=== PATIENT | male | born 1945 | race Asian ===

== ENCOUNTER 2018-11-25 19:44 | Emergency (ER) | payer MEDICARE, MEDICAID ==
[~2018-11-25] VITALS: Ht 167.6 cm; Wt 72.1 kg
[2018-11-25] MEDS ORDERED: cloNIDine HCL 0.1 MG TAB PO ONE (21:45)
[2018-11-26 01:54] LABS: Basophils # (auto) 0.1 uL; Basophils % (auto) 0.7 % (0.0-2.0); Eosinophils # (auto) 0.2 uL; Hematocrit 39.6 % (41.0-53.0); Lymphocytes # (auto) 1.9 uL; Lymphocytes % (auto) 25.8 % (10.0-50.0); Mean Corpuscular Hgb Conc. 32.9 g/dL (32.0-36.0); Mean Corpuscular Volume 81.9 fL (80.0-100.0); Monocytes # (auto) 0.5 uL; Monocytes % (auto) 7.2 % (0.0-12.0); Neutrophils # (auto) 4.7 uL; Neutrophils % (auto) 63.3 % (37.0-80.0); Platelet Count (auto) 203 10^3/uL (140-450); Red Blood Cells 4.84 10^6/uL (4.5-5.90); Red Cell Distribution Width 14.5 % (11.8-14.3); White Blood Cell 7.4 10^3/uL (4.4-10.8)
[2018-11-26 02:19] LABS: Alanine Aminotransferase 21 U/L (16-61); Albumin 3.3 g/dL (3.4-5.0); Anion Gap 8 (5-15); Aspartate Aminotransferase 14 U/L (15-37); BUN/Creatinine Ratio 15.2; Blood Urea Nitrogen 17 mg/dL (7-18); Calcium 7.8 mg/dL (8.5-10.1); Carbon Dioxide 25 mmol/L (21-32); Chloride 109 mmol/L (98-107); GFR African American 83 mL/min; GFR Non-African American 68 mL/min; Glucose 95 mg/dL (74-106); Potassium 3.8 mmol/L (3.5-5.1); Sodium 142 mmol/L (136-145)
[2018-11-26 02:23] LABS: Alkaline Phosphatase 44 U/L (45-117); Bilirubin, Total 0.7 mg/dL (0.2-1.0)
[2018-11-26 09:13] VITALS: BP 139/89
[2018-11-26] MEDS ORDERED: ACETAMINOPHEN 325 MG TAB PO ONE (09:45)
== END 2018-11-26 08:47 | disposition home or self-care (01) ==
LOC: ER 19:44
DX: I10 Essential (primary) hypertension (principal)
CPT/HCPCS: 36415; 71045; 80053; 83880; 84484; 85025; 93005

== ENCOUNTER 2024-04-26 07:21 | Inpatient (IN) | payer MEDICARE, MEDICAID ==
[~2024-04-26] VITALS: Ht 170.2 cm; Wt 72.0 kg
--- NOTE | 2024-04-26 07:34 | ECG ---
[facility] Test Date: 2024-04-26 Test Time: 07:33:48 Pat Name: EDUARDO NARAYAN Department: ER Room: 0287T Gender: M Rd Lab Technician: YESSICA : 1945 Requested By: SHAHEEN DENNISON Order Number: [id number] Reading MD: Felipe Greenfield Measurements Intervals [place] Rate: 73 P: 80 VT: 205 QRS: 73 QRSD: 82 T: 81 QT: 440 QTc: 485 Interpretive Statements Sinus rhythm Borderline T wave abnormalities Borderline prolonged QT interval Electronically Signed On 04-28-2024 16:13:07 PST by Felipe Greenfield Please click the below link to view image of tracing.
[2024-04-26 08:06] LABS: Basophils # (auto) 0.1 10 ^3/uL (0-0.2); Basophils % (auto) 0.5 % (0.0-2.0); Eosinophils # (auto) 0 10 ^3/uL (0-0.8); Eosinophils % (auto) 0.2 % (0.0-7.0); Hematocrit 41.9 % (41.0-53.0); Hemoglobin 13.6 g/dL (13.5-17.5); Lymphocytes % (auto) 6.2 % (10.0-50.0); Mean Corpuscular Hgb Conc. 32.4 g/dL (32.0-36.0); Mean Corpuscular Volume 83.2 fL (80.0-100.0); Monocytes # (auto) 0.6 10 ^3/uL (0-1.3); Monocytes % (auto) 3.8 % (0.0-12.0); Neutrophils # (auto) 13.7 10 ^3/uL (1.6-8.6); Neutrophils % (auto) 89.3 % (37.0-80.0); Nucleated Red Blood Cells % 0.1 %; Platelet Count (auto) 246 10^3/uL (140-450); Red Blood Cells 5.04 10^6/uL (4.5-5.90); Red Cell Distribution Width 14.9 % (11.8-14.3); White Blood Cell 15.3 10^3/uL (4.4-10.8)
[2024-04-26] MEDS: ASPirin 81 mg TAB PO ONE (08:14)
--- NOTE | 2024-04-26 08:19 | ED.PDOC ---
History of Present Illness HPI Comments 79 y/o M, with a Hx of uncontrolled HTN and HLD, HTN, FL, and appendectomy, presents with brother for c/o chest, abdominal, and back pain, shortness of breath, generalized weakness, and HTN, today. Patient is a Croatian speaker and, per brother, who is translating on patient's behalf, endorses on onset of s ymptoms since 1800, last night. Patient states on pain being a 9/10, pressure- like, and having it before when he had an FL in the past. Patient denies having any shortness of breath, nausea, vomiting, fever, chills, or other associated symptoms or modifiers at this time. Chief Complaint: Chest Pain Time Seen by MD: 07:45 Primary Care Provider: UNKNOWN Reviewed Notes: Nurses Notes, Medications, Allergies Allergies: Coded Allergies: NO KNOWN ALLERGIES (Unverified , 11/25/18) Information Source: Patient, Relative (Sibling) Mode of Arrival: Ambulatory Severity: Moderate Timing: Days Duration: Since onset Prehospital treatment: None Past Medical History PAST MEDICAL HISTORY: DM, High Lipids, HTN, FL Surgical History: Appendectomy Family History Family History: Unknown Social History Smoker: Non-Smoker Alcohol: Denies ETOH Use Drugs: Denies Drug Use Lives In: Home Constitutional: denies: chills, diaphoresis, fatigue, fever, malaise, sweats, weakness, others EENTM: denies: blurred vision, double vision, ear bleeding, ear discharge, ear drainage, ear pain, ear ringing, eye pain, eye redness, hearing loss, mouth pain, mouth swelling, nasal discharge, nose bleeding, nose congestion, nose pain, photophobia, tearing, throat pain, throat swelling, voice changes, others Respiratory: reports: shortness of breath; denies: cough, hemoptysis, orthopnea, SOB at rest, SOB with excertion, stridor, wheezing, others Cardiovascular: reports: chest pain Gastrointestinal: reports: abdominal pain; denies: abdomen distended, blood streaked bowels, constipated, diarrhea, dysphagia, difficulty swallowing, hematemesis, melena, nausea, poor appetite, poor fluid intake, rectal bleeding, rectal pain, vomiting, others Genitourinary: denies: burning, dysuria, flank pain, frequency, hematuria, incontinence, penile discharge, penile sore, pain, testicle pain, testicle swelling, urgency, others Neurological: reports: weakness; denies: dizziness, fainting, headache, left sided numbness, left sided weakness, numbness, paresthesia, pre-existing deficit, right sided numbness, right sided weakness, seizure, speech problems, tingling, tremors, others Musculoskeletal: reports: back pain; denies: gout, joint pain, joint swelling, muscle pain, muscle stiffness, neck pain, others Integumetry: denies: bruises, change in color, change in hair/nails, dryness, l aceration, lesions, lumps, rash, wounds, others Allergic/Immunocompromised: denies: Difficulty Healing, Frequent Infections, Hives, Itching, others Hematologic/Lymphatic: reports: others (HTN); denies: anemia, blood clots, easy bleeding, easy bruising, swollen glands Endocrine: denies: excessive hunger, excessive sweating, excessive thirst, excessive urination, flushing, intolerance to cold, intolerance to heat, unexplained weight gain, unexplained weight loss, others Psychiatric: denies: anxiety, bipolar disorder, depression, hopeless, panic disorder, schizophrenia, sleepless, suicidal, others All Other Systems: Reviewed and Negative Physical Exam General Appearance: Moderate Distress HEENT: Normal ENT Inspection, Pharynx Normal, TMs Normal Neck: Full Range of Motion, Non-Tender, Normal, Normal Inspection Respiratory: Chest Non-Tender, Lungs Clear, No Accessory Muscle Use, No Respiratory Distress, Normal Breath Sounds Cardiovascular: No Edema, No JVD, No Murmur, No Gallop, Normal Peripheral Pulses, Regular Rate/Rhythm Breast Exam: Deferred Gastrointestinal: No Organomegaly, Non Tender, No Pulsatile Mass, Normal Bowel Sounds, Soft Genitalia: Deferred Pelvic: Deferred Rectal: Deferred Extremities: No calf tenderness, Normal capillary refill, Normal inspection, Normal range of motion, Non-tender, No pedal edema Musculoskeletal : Apperance: Normal Neurologic: Alert, independent sales representative II-XII nml as Tested, Motor Weakness, Normal Affect, Normal Mood, No Sensory Deficits Cerebellar Function: Normal Reflexes: Normal Skin: Dry, Normal Color, Warm Lymphatic: No Adenopathy Was a procedure done? Was a procedure done?: No EKG EKG : Pulse Rate (adult): 73 [place]: Normal Cardiac Rhythm: NSR Block: None Hypertrophy: None ST: Normal Differential Dx Considerations may include: FL, ACS, PE, PNA, angina, costochondritis, gastritis, gastroenteritis, pericarditis, anxiety, HTN emergency, medication non-compliancy X-Ray, Labs, Meds, VS Vital Signs Date Time Temp Pulse Resp B/P (MAP) Pulse Ox O2 Delivery O2 Flow Rate FiO2 04/26/24 08:19 73 04/26/24 07:40 97.6 68 18 164/93 (116) 99 97.6 04/26/24 07:34 97.6 68 18 164/93 (116) 99 04/26/24 07:33 73 Lab Test 04/26/24 10:26 04/26/24 08:35 04/26/24 08:34 04/26/24 07:36 Range/Units Troponin I High Sensitivity < 3 L < 3 L < 3 L </=54 ng/L Triglycerides Level 101 < 150 mg/dL Cholesterol Level 177 < 200 mg/dL LDL Cholesterol 104 H < 100 mg/dL HDL Cholesterol 53 40-59 mg/dL Thyroid Stimulating Hormone (TSH) 0.75 0.55-4.78 uIU/mL White Blood Count 15.3 H 4.4-10.8 10^3/uL Red Blood Count 5.04 4.5-5.90 10^6/uL Hemoglobin 13.6 13.5-17.5 g/dL Hematocrit 41.9 41.0-53.0 % Mean Corpuscular Volume 83.2 80.0-100.0 fL Mean Corpuscular Hemoglobin 27.0 L 28.0-32.0 pg Mean Corpuscular Hemoglobin Concent 32.4 32.0-36.0 g/dL Red Cell Distribution Width 14.9 H 11.8-14.3 % Platelet Count 246 140-450 10^3/uL Mean Platelet Volume 7.7 6.9-10.8 fL Neutrophils (%) (Auto) 89.3 H 37.0-80.0 % Lymphocytes (%) (Auto) 6.2 L 10.0-50.0 % Monocytes (%) (Auto) 3.8 0.0-12.0 % Eosinophils (%) (Auto) 0.2 0.0-7.0 % Basophils (%) (Auto) 0.5 0.0-2.0 % Neutrophils # (Auto) 13.7 H 1.6-8.6 10 ^3/uL Lymphocytes # (Auto) 1.0 0.4-5.4 10 ^3/uL Monocytes # (Auto) 0.6 0-1.3 10 ^3/uL Eosinophils # (Auto) 0 0-0.8 10 ^3/uL Basophils # (Auto) 0.1 0-0.2 10 ^3/uL Nucleated Red Blood Cells 0.1 % Sodium Level 141 136-145 mmol/L Potassium Level 3.5 3.5-5.1 mmol/L Chloride Level 105 98-107 mmol/L Carbon Dioxide Level 27 20-31 mmol/L Anion Gap 9 5-15 Blood Urea Nitrogen 13 9-23 mg/dL Creatinine 1.20 0.700-1.30 mg/dL Glomerular Filtration Rate Calc 62 >90 mL/min BUN/Creatinine Ratio 10.8 10.0-20.0 Serum Glucose 120 H 74-106 mg/dL Hemoglobin A1c 5.7 <5.7 % A1C Calcium Level 9.8 8.7-10.4 mg/dL The chest x-ray is negative An IV Hep-Lock was established The patient's CBC shows a slightly elevated white blood cell count of 15.3 The rest of the CBC and chemistry panel are within normal limits The troponin level is negative At this time, the patient was being admitted with a diagnosis of acute coronary syndrome The patient was also given aspirin here in the emergency department's The patient was being admitted at this time. Images Reviewed?: Images reviewed and evaluated by me Time of 1ST Reevaluation: 08:15 Reevaluation 1ST: Unchanged Time of 2ND Reevaluation: 12:37 Reevaluation 2ND: Unchanged Patient Education/Counseling: Diagnosis, Treatment, Prognosis Family Education/Counseling: Diagnosis, Treatment, Prognosis Departure 1 Departure Time of Disposition: 12:37 Impression: Primary Impression: Acute coronary syndrome Disposition: 09 ADMITTED INPATIENT Admit to: Tele Condition: Fair Critical Care Note Critical Care Time?: No Stability Stability form required: Yes Unstable for transfer: Telemetry monitoring (Telemetry monitoring required), ED Physician Assesment (Clinical assesment) Heart Score Heart Score: Heart Score Response (Comments) Value History Moderate Suspicious 1 EKG Normal 0 Age >65 2 Risk Factors >3 or Hx ASHD 2 Troponin Normal limit 0 Total 5 I personally scribed for JUMA,SHAHEEN B MD ([email or web address]) on 04/26/24 at 08:19. Electronically submitted by Pradeep Schaefer ([email or web address]). SHAHEEN DENNISON MD Apr 26, 2024 08:19
[2024-04-26 08:33] LABS: Chloride 105 mmol/L (98-107); Sodium 141 mmol/L (136-145)
[2024-04-26 08:34] LABS: Anion Gap 9 (5-15); Calcium 9.8 mg/dL (8.7-10.4); Carbon Dioxide 27 mmol/L (20-31)
[2024-04-26 08:39] LABS: BUN/Creatinine Ratio 10.8 (10.0-20.0); Blood Urea Nitrogen 13 mg/dL (9-23)
--- NOTE | 2024-04-26 08:40 | DVH ---
CHEST RADIOGRAPH Indication: cp Technique: Frontal and lateral view of the chest was obtained Comparison: None FINDINGS: Lines and Tubes: None Lungs: Clear Pleura: No effusion. No pneumothorax. Cardiomediastinal contours: Vascular calcifications of the aorta. Bones: Unremarkable IMPRESSION: No evidence of acute disease.
[2024-04-26 08:52] LABS: Glucose 120 mg/dL (74-106); Potassium 3.5 mmol/L (3.5-5.1)
--- NOTE | 2024-04-26 10:01 | DVHHP2 ---
History of Present Illness Reason for Visit: Chest pain History of Present Illness Joanne Araya is a 79YO M with pmHx of HTN, HLD, AR, DM and appendectomy who presents to the ED with chest pain, abdominal pain, back pain, generalized weakness, and shortness of breath. Patient is here with his brother who is helping translate, patient is sudanese speaking. Per patient pain is 8/10 and radiates to both shoulders, his back, and his abdomen. Patient reports he has no PCP and is not taking any medications at this time. Patient denies sob, N/V/D, fever, and chills. Cardiovascular: HTN, AR, hyperipidemia Endocrine: Diabetes Past Surgical History: Appendectomy Family History: None Smoke: No ALCOHOL: none Drugs: None Lives: with Family Domestic Violence: Neg Review of Systems Constitutional: No: Fever, Chills, Sweats, Weakness, Malaise, Other Eyes: No: Pain, Vision change, Conjunctivae inflammation, Eyelid inflammation, Other, Redness ENT: No: Ear pain, Ear discharge, Nose pain, Nose discharge, Nose congestion, Mouth pain, Mouth swelling, Throat pain, Throat swelling, Other Respiratory: No: Cough, Dry, Shortness of breath, SOB with excertion, Wheezing, Hemoptysis, Pleuritic Pain, Sputum, Wheezing, Other Cardiovascular: Chest Pain; No: Palpitations, Orthopnea, Paroxysmal Noc. Dyspn ea, Edema, Lt Headedness, Other Gastrointestinal: Abdominal Pain; No: Nausea, Vomiting, Diarrhea, Constipation, Melena, Hematochezia, Other Genitourinary: No Dysuria, No Frequency, No Incontinence, No Hematuria, No Retention, No Other Musculoskeletal: shoulder pain, back pain; No: other, neck pain, arm pain, hand pain, leg pain, foot pain Skin: No: Rash, Lesions, Jaundice, Bruising, Other Neurological: No: Weakness, Numbness, Incoordination, Change in speech, Confusion, Seizures, Other Allergies: Coded Allergies: NO KNOWN ALLERGIES (Unverified , 11/25/18) Medications Current Medications Medications Dose Ordered Sig/Rosa Route Start Time Stop Time Status Last Admin Dose Admin Hydralazine HCl 10 mg Q6HP PRN IV 04/26/24 10:00 UNV Exam Vital Signs Vital Signs Date Time Temp Pulse Resp B/P (MAP) Pulse Ox O2 Delivery O2 Flow Rate FiO2 04/26/24 08:19 73 04/26/24 07:40 97.6 18 164/93 (116) 99 97.6 General Appearance: Alert, Oriented X3, Cooperative, No acute distress HEENT: Atraumatic, PERRLA, EOMI, Mucous membr. moist/pink Respiratory: Clear to auscultation, Normal air movement Cardiovascular: Regular rate, Normal S1, Normal S2, No murmurs Abdominal: Normal bowel sounds, Soft, No tenderness, No hepatospenomegaly, No masses Extremities: No clubbing, No cyanosis, No edema, Normal pulses, No tenderness/swelling Skin: No rashes, No breakdown, No significant lesion Neuro: Normal gait, Normal speech, Normal tone, Sensation intact Psych/Mental Status: Mental status NL, Mood NL Labs/Xrays Labs Test 04/26/24 08:34 04/26/24 07:36 Range/Units Troponin I High Sensitivity < 3 L </=54 ng/L White Blood Count 15.3 H 4.4-10.8 10^3/uL Red Blood Count 5.04 4.5-5.90 10^6/uL Hemoglobin 13.6 13.5-17.5 g/dL Hematocrit 41.9 41.0-53.0 % Mean Corpuscular Volume 83.2 80.0-100.0 fL Mean Corpuscular Hemoglobin 27.0 L 28.0-32.0 pg Mean Corpuscular Hemoglobin Concent 32.4 32.0-36.0 g/dL Red Cell Distribution Width 14.9 H 11.8-14.3 % Platelet Count 246 140-450 10^3/uL Mean Platelet Volume 7.7 6.9-10.8 fL Neutrophils (%) (Auto) 89.3 H 37.0-80.0 % Lymphocytes (%) (Auto) 6.2 L 10.0-50.0 % Monocytes (%) (Auto) 3.8 0.0-12.0 % Eosinophils (%) (Auto) 0.2 0.0-7.0 % Basophils (%) (Auto) 0.5 0.0-2.0 % Neutrophils # (Auto) 13.7 H 1.6-8.6 10 ^3/uL Lymphocytes # (Auto) 1.0 0.4-5.4 10 ^3/uL Monocytes # (Auto) 0.6 0-1.3 10 ^3/uL Eosinophils # (Auto) 0 0-0.8 10 ^3/uL Basophils # (Auto) 0.1 0-0.2 10 ^3/uL Nucleated Red Blood Cells 0.1 % Sodium Level 141 136-145 mmol/L Potassium Level 3.5 3.5-5.1 mmol/L Chloride Level 105 98-107 mmol/L Carbon Dioxide Level 27 20-31 mmol/L Anion Gap 9 5-15 Blood Urea Nitrogen 13 9-23 mg/dL Creatinine 1.20 0.700-1.30 mg/dL Glomerular Filtration Rate Calc 62 >90 mL/min BUN/Creatinine Ratio 10.8 10.0-20.0 Serum Glucose 120 H 74-106 mg/dL Calcium Level 9.8 8.7-10.4 mg/dL CHEST RADIOGRAPH FINDINGS: Lines and Tubes: None Lungs: Clear Pleura: No effusion. No pneumothorax. Cardiomediastinal contours: Vascular calcifications of the aorta. Bones: Unremarkable IMPRESSION: No evidence of acute disease. Assessment/Plan Assessment/Plan Assessment: Acute chest pain R/O ACS Hx of HTN HLD AR DM Appendectomy Plan: Admit to tele IV fluids Pain management IV antibiotics Antiemetics Cards cx EKG noted CXR noted ECHO TSH Lipid panel Urine drug screen HgbA1C 5.7 ISS and accuchecks Diet as tolerated Monitor labs Home meds reconciled Plan discussed with: Patient, Other My Orders Orders - DIYA GOLD Procedure Category Date Status Time Hydralazine Injection PHA 04/26/24 Logged (Apresoline Inject 10:00 Hydralazine Injection PHA 04/26/24 Logged (Apresoline Inject 10:00 Date of Service: Apr 26, 2024 Billing Provider: DIYA GOLD Common Visit Codes: [id number] INP/OBS CARE (MOD) DIYA GOLD Apr 26, 2024 10:01
[2024-04-26] MEDS ORDERED: ONDANSETRON HCL 4 MG/2 ML VIAL IV PRN (10:30)
[2024-04-26] MEDS ORDERED: LORazepam 0.5 MG TAB PO PRN (10:30)
[2024-04-26] MEDS ORDERED: NITROGLYCERIN 0.4 MG SL TAB SL PRN (10:30)
[2024-04-26] MEDS ORDERED: DEXTROSE (50%) 50ML SYRG IV PRN (10:45)
[2024-04-26 11:44] LABS: Cholesterol 177 mg/dL (< 200)
[2024-04-26 11:45] LABS: LDL Cholesterol 104 mg/dL (< 100); Triglycerides 101 mg/dL (< 150)
[2024-04-26 11:46] LABS: HDL Cholesterol 53 mg/dL (40-59)
[2024-04-26] MEDS: ACCU-CHEK COMFORT CURVE STRIP VI SCH (12:00)
--- NOTE | 2024-04-26 14:57 | DVHINCON2 ---
Date Seen: Apr 26, 2024 Referring Physician MONTEZ Rutledge Reason for Consultation R/O ACS History of Present Illness This is a 79-year-old male patient who presents to emergency room with chief complaint of chest pain. The patient primarily speaks [place]. His brother who is at bedside is able to translate at time of assessment. The patient states he has been experiencing chest pain for approximately 12 hours. He de scribes it as provoked by deep inhalation, sharp in nature, left-sided with radiation to right side of chest, back, bilateral legs, and bilateral arms. Associated symptoms include shortness of breath. Initial twelve lead electrocardiogram reveals normal sinus rhythm without any significant ST segment changes. Initial serial troponin levels have been negative. Significant past m edical history includes hypertension, hyperlipidemia, and myocardial infarction. The patient reports that he does not have a primary doctor and rarely is seen by any physicians. He reports going to the emergency room "a few years ago" at [facility] where he states he was diagnosed with a myocardial infarction, but states there were no interventions such as angiogram or stent placement. Past Medical History Past medical history reviewed. No other significant than mentioned above. Past Surgical History Appendectomy Family History Family history reviewed. Social History Denies the use of tobacco, alcohol or illicit drugs. Allergies: Coded Allergies: NO KNOWN ALLERGIES (Unverified , 11/25/18) Home Meds Patient denies taking any home medications Current Medications Current Medications Medications (Trade) Dose Ordered Sig/Rosa Route PRN Reason Start Time Stop Time Status Last Admin Hydralazine HCl (Apresoline Injection) 10 mg Q6HP PRN IV SBP>150 04/26/24 10:00 Sodium Chloride 1,000 ml @ 75 mls/hr [id number] IV 04/26/24 10:30 Aspirin 81 mg DAILY PO 04/27/24 10:00 UNV Aspirin 325 mg DAILY PO 04/27/24 10:00 UNV Clopidogrel Bisulfate (Plavix) 75 mg DAILY PO 04/27/24 10:00 Atorvastatin Calcium (Lipitor) 40 mg HS PO 04/26/24 22:00 Lisinopril (Zestril Tablet) 5 mg DAILY PO 04/27/24 10:00 Acetaminophen (Tylenol Tablet) 650 mg Q6HP PRN PO MILD PAIN (1-3 PAIN SCALE) 04/26/24 10:30 Lorazepam (Ativan Tablet) 0.5 mg Q6HP PRN PO ANXIETY 04/26/24 10:30 Docusate Sodium (Colace Capsule) 100 mg DAILY PO 04/27/24 10:00 Ondansetron HCl (Zofran) 4 mg Q4HP PRN IV NAUSEA / VOMITING 04/26/24 10:30 Nitroglycerin (Ntrostat Sublingual) 0.4 mg Q5MINP PRN SL FOR CHEST PAIN 04/26/24 10:30 Morphine Sulfate 2 mg Q30M PRN IV FOR CHEST PAIN 04/26/24 10:30 Diagnostic Test (Pha) (Accu-Chek Comfort Curve T) 1 strip IQ4HR 04/26/24 12:00 Insulin Human Regular (InsuLIN R) IQ4HR SC 04/26/24 12:00 Dextrose 50 ml UD PRN IV Blood Sugar LESS THAN 60 04/26/24 10:45 Review of Systems Constitutional: No symptom reported Ears, Nose, & Throat: No symptom reported Eyes: No symptom reported Neurological: No symptoms reported Pulmonary/Respiratory: No symptoms reported Cardiovascular: Chest pain Gastrointestinal: No symptom reported Genitourinary: No symptom reported Musculoskeletal: No symptom reported Skin: No symptom reported Psychiatric: No symptom reported Endocrine: No symptom reported Hematologic/Lymphatic: No symptom reported Vital Signs Vital Signs Date Time Temp Pulse Resp B/P (MAP) Pulse Ox O2 Delivery O2 Flow Rate FiO2 04/26/24 08:19 73 04/26/24 07:40 97.6 18 164/93 (116) 99 97.6 Physical Exam General Appearance: Cooperative. Thin Pulmonary/Respiratory: Clear, bilateral breaths sounds. Cardiovascular/Chest: Regular rate and rhythm. Peripheral Pulses: 2+ Radial (R). 2+ Radial (L). 2+ Pedal (R). 2+ Pedal (L) Abdominal Exam: Normal bowel sounds. Ankle Exam: Negative ankle edema Lower extremities: Negative lower extremity edema Neuro/Mental Status: A/OX4, coherent. Thoughts/Psych: Normal thought pattern. Appropriate mood and affect. Good judgment and insight. Appearance: No acute distress. Skin Exam: Normal inspection. Normal color. Warm and dry. Labs/Diagnostic Data Labs Test 04/26/24 10:26 04/26/24 08:35 04/26/24 07:36 Range/Units Troponin I High Sensitivity < 3 L </=54 ng/L Triglycerides Level 101 < 150 mg/dL Cholesterol Level 177 < 200 mg/dL LDL Cholesterol 104 H < 100 mg/dL HDL Cholesterol 53 40-59 mg/dL Thyroid Stimulating Hormone (TSH) 0.75 0.55-4.78 uIU/mL White Blood Count 15.3 H 4.4-10.8 10^3/uL Red Blood Count 5.04 4.5-5.90 10^6/uL Hemoglobin 13.6 13.5-17.5 g/dL Hematocrit 41.9 41.0-53.0 % Mean Corpuscular Volume 83.2 80.0-100.0 fL Mean Corpuscular Hemoglobin 27.0 L 28.0-32.0 pg Mean Corpuscular Hemoglobin Concent 32.4 32.0-36.0 g/dL Red Cell Distribution Width 14.9 H 11.8-14.3 % Platelet Count 246 140-450 10^3/uL Mean Platelet Volume 7.7 6.9-10.8 fL Neutrophils (%) (Auto) 89.3 H 37.0-80.0 % Lymphocytes (%) (Auto) 6.2 L 10.0-50.0 % Monocytes (%) (Auto) 3.8 0.0-12.0 % Eosinophils (%) (Auto) 0.2 0.0-7.0 % Basophils (%) (Auto) 0.5 0.0-2.0 % Neutrophils # (Auto) 13.7 H 1.6-8.6 10 ^3/uL Lymphocytes # (Auto) 1.0 0.4-5.4 10 ^3/uL Monocytes # (Auto) 0.6 0-1.3 10 ^3/uL Eosinophils # (Auto) 0 0-0.8 10 ^3/uL Basophils # (Auto) 0.1 0-0.2 10 ^3/uL Nucleated Red Blood Cells 0.1 % Sodium Level 141 136-145 mmol/L Potassium Level 3.5 3.5-5.1 mmol/L Chloride Level 105 98-107 mmol/L Carbon Dioxide Level 27 20-31 mmol/L Anion Gap 9 5-15 Blood Urea Nitrogen 13 9-23 mg/dL Creatinine 1.20 0.700-1.30 mg/dL Glomerular Filtration Rate Calc 62 >90 mL/min BUN/Creatinine Ratio 10.8 10.0-20.0 Serum Glucose 120 H 74-106 mg/dL Hemoglobin A1c 5.7 <5.7 % A1C Calcium Level 9.8 8.7-10.4 mg/dL Assessment Chest pain, rule out coronary artery disease Hypertensive urgency Hyperlipidemia Rule out structural heart disease Plan/Recommendation We will continue with following plan/recommendations (Dr. Brennan): Case reviewed and discussed with . We will proceed with obtaining a transthoracic echocardiogram to evaluate cardiac function. The patient denies any previous cardiac workup in the past. Given the patient's clinical presentation and comorbidities, the patient may benefit from a coronary angiogram with left catheterization. [place] temperature logging operator used (ID [id number]) at bedside to explain procedure in full detail including risks and benefits. Risks include but are not limited to bleeding, contrast induced nephropathy, stroke, and even . The patient understands and is agreeable to undergo the pr ocedure. We will schedule the patient at first availability on 04/27/2024. In the meantime, continue with medical management and aggressive blood pressure control and lipid-lowering agent. Thank you for allowing us to care for this patient. Please call with any questions or concerns. Critical care time spent: 38 minutes This medical document was created using an electronic medical record system with voice recognition software and computerized dictation system. Although this document has been carefully reviewed, there might still be some phonetic and typographical errors. Occasional wrong-word or ``sound-alike substitutions may have occurred due to the inherent limitations of voice recognition software. These areas are purely typographical due to imperfections of the software programs and do not reflect any compromise in the patient's medical care. Please read the chart carefully and recognize, using context, where these substitutions have occurred. Plan discussed with: Patient Date of Service: Apr 26, 2024 Billing Provider: JULIO BRENNAN MD Cardiology Common Codes: [id number] INP/OBS CARE (High) Cardiology Consultation Codes: [id number] CONSULT <45MIN RENAY THOMASON Apr 26, 2024 14:57
[2024-04-26 15:06] VITALS: PULSE 62; RESP 14; O2SAT 99
[2024-04-26] MEDS: SODIUM CHLORIDE 0.9% 1,000 ML IV SCH (15:38)
[2024-04-26] MEDS: hydrALAZINE HCL 20 MG/ML VL IV ONE (15:39)
[2024-04-26] MEDS: InsuLIN REG 1unit/0.01ml Soln (100units/ml) SC SCH (16:00)
[2024-04-26 20:00] VITALS: PULSE 97
[2024-04-26 20:59] VITALS: BP 131/65; PULSE 85; PULSE 92; RESP 16; RESP 18; TEMP 97.6; O2SAT 98
[2024-04-26] MEDS: ATORVASTATIN 20 MG TAB PO SCH (21:00)
[2024-04-26 22:00] VITALS: BP 131/65; PULSE 102; RESP 16; TEMP 97.6; O2SAT 98
[2024-04-27] VITALS (13 sets, daily range): BP systolic 95–159; BP diastolic 49–95; PULSE 83–114; RESP 14–20; TEMP 97.3–98.7; O2SAT 96–99
[2024-04-27] MEDS: MORPHINE SULFATE INJ 2 MG/ml SYRG IV PRN (05:43)
[2024-04-27 06:15] LABS: Basophils # (auto) 0.1 10 ^3/uL (0-0.2); Basophils % (auto) 0.6 % (0.0-2.0); Eosinophils # (auto) 0.1 10 ^3/uL (0-0.8); Eosinophils % (auto) 1.3 % (0.0-7.0); Hematocrit 40.1 % (41.0-53.0); Hemoglobin 13.2 g/dL (13.5-17.5); Lymphocytes # (auto) 1.8 10 ^3/uL (0.4-5.4); Lymphocytes % (auto) 18.1 % (10.0-50.0); Mean Corpuscular Hgb Conc. 32.9 g/dL (32.0-36.0); Monocytes # (auto) 0.7 10 ^3/uL (0-1.3); Monocytes % (auto) 7.3 % (0.0-12.0); Neutrophils # (auto) 7.4 10 ^3/uL (1.6-8.6); Neutrophils % (auto) 72.7 % (37.0-80.0); Nucleated Red Blood Cells % 0.2 %; Platelet Count (auto) 228 10^3/uL (140-450); Red Blood Cells 4.89 10^6/uL (4.5-5.90); Red Cell Distribution Width 14.4 % (11.8-14.3); White Blood Cell 10.2 10^3/uL (4.4-10.8)
[2024-04-27 06:34] LABS: Alanine Aminotransferase 10 U/L (7-40); Albumin 4.2 g/dL (3.2-4.8); Alkaline Phosphatase 45 U/L (46-116); Anion Gap 8 (5-15); Aspartate Aminotransferase 13 U/L (13-40); BUN/Creatinine Ratio 9.7 (10.0-20.0); Blood Urea Nitrogen 11 mg/dL (9-23); Calcium 9.8 mg/dL (8.7-10.4); Carbon Dioxide 26 mmol/L (20-31); Chloride 107 mmol/L (98-107); Glucose 91 mg/dL (74-106); Magnesium 2.3 mg/dL (1.6-2.6); Potassium 3.5 mmol/L (3.5-5.1); Sodium 141 mmol/L (136-145)
[2024-04-27 06:35] LABS: Bilirubin, Total 1.4 mg/dL (0.2-1.0); Total Protein 7.2 g/dL (5.7-8.2)
[2024-04-27] MEDS: hydrALAZINE HCL 20 MG/ML VL IV PRN (07:47)
[2024-04-27] MEDS: ASPirin 81 mg TAB PO SCH (08:44)
[2024-04-27] MEDS: LISINOPRIL 5 MG TAB PO SCH (08:44)
[2024-04-27 09:41] LABS: Partial Thromboplastin Time 26.8 SEC (24.5-34.5); Prothrombin Time 10.6 sec (9.3-11.8)
[2024-04-27] MEDS ORDERED: CLOPIDOGREL BISULFATE 75 MG TAB PO SCH (10:00)
[2024-04-27] MEDS: DOCUSATE SOD 100 MG CAP PO SCH (10:00)
[2024-04-27] MEDS ORDERED: ASPirin 325 MG TAB PO SCH (10:00)
--- NOTE | 2024-04-27 13:28 | DVHPN2 ---
Reviewed: Care Plan, H&P, Labs, Medications, Previous Orders, Radiology Changes from previous H/P or p: No Changes Eyes: No Pain, No Vision change, No Conjunctivae inflammation, No Eyelid inflammation, No Other, No Redness ENT: No Ear pain, No Ear discharge, No Nose pain, No Nose discharge, No Nose congestion, No Mouth pain, No Mouth swelling, No Throat pain, No Throat swelling, No Other Cardiovascular: Chest Pain; No Palpitations, No Orthopnea, No Paroxysmal Noc. Dyspnea, No Edema, No Lt Headedness, No Other Respiratory: No Cough, No Dry, No Shortness of breath, No SOB with excertion, No Wheezing, No Hemoptysis, No Pleuritic Pain, No Sputum, No Other Gastrointestinal: No Nausea, No Vomiting; Abdominal Pain; No Diarrhea, No Constipation, No Melena, No Hematochezia, No Other Genitourinary: No Dysuria, No Frequency, No Incontinence, No Hematuria, No Retention, No Other Musculoskeletal: No other, No neck pain; shoulder pain; No arm pain; back pain; No hand pain, No leg pain, No foot pain Skin: No Rash, No Lesions, No Jaundice, No Bruising, No Other Objective Vitals Vital Signs Date Time Temp Pulse Resp B/P (MAP) Pulse Ox O2 Delivery O2 Flow Rate FiO2 04/27/24 13:00 98.2 94 17 110/67 (81) 97 98.2 04/27/24 08:20 Room Air* 0 21 Intake/Output Intake and Output 04/27/24 07:00 Intake Total 200 ml Balance 200 ml Intake Oral 200 ml # Voids 2 Medications Current Medications Medications Dose Ordered Sig/Rosa Route Start Time Stop Time Status Last Admin Dose Admin Hydralazine HCl 10 mg Q6HP PRN IV 04/26/24 10:00 04/27/24 07:47 10 MG Sodium Chloride 1,000 ml @ 75 mls/hr [id number] IV 04/26/24 10:30 04/26/24 23:50 75 MLS/HR Aspirin 81 mg DAILY PO 04/27/24 10:00 04/27/24 08:44 81 MG Atorvastatin Calcium 40 mg HS PO 04/26/24 22:00 04/26/24 21:00 40 MG Lisinopril 5 mg DAILY PO 04/27/24 10:00 04/27/24 08:44 5 MG Acetaminophen 650 mg Q6HP PRN PO 04/26/24 10:30 Lorazepam 0.5 mg Q6HP PRN PO 04/26/24 10:30 Docusate Sodium 100 mg DAILY PO 04/27/24 10:00 Ondansetron HCl 4 mg Q4HP PRN IV 04/26/24 10:30 Nitroglycerin 0.4 mg Q5MINP PRN SL 04/26/24 10:30 Morphine Sulfate 2 mg Q30M PRN IV 04/26/24 10:30 04/27/24 08:46 2 MG Diagnostic Test (Pha) 1 strip IQ4HR 04/26/24 12:00 04/27/24 10:53 1 STRIP Insulin Human Regular IQ4HR SC 04/26/24 12:00 04/26/24 20:53 2 UNITS Dextrose 50 ml UD PRN IV 04/26/24 10:45 Laboratory Results Laboratory Tests 04/27/24 05:39 Chemistry Test 04/27/24 05:39 Albumin 4.2 g/dL (3.2-4.8) Calcium Level 9.8 mg/dL (8.7-10.4) Magnesium Level 2.3 mg/dL (1.6-2.6) Total Protein 7.2 g/dL (5.7-8.2) Coagulation Test 04/27/24 05:39 Prothrombin Time 10.6 sec (9.3-11.8) Prothrombin Time INR 1.00 (0.9-1.15) Activated Partial Thromboplast Time 26.8 SEC (24.5-34.5) LFT Test 04/27/24 05:39 Alanine Aminotransferase (ALT) 10 U/L (7-40) Alkaline Phosphatase 45 U/L (46-116) L Aspartate Amino Transferase (AST) 13 U/L (13-40) Total Bilirubin 1.4 mg/dL (0.2-1.0) H Labs and/or images reviewed: Labs reviewed by me, Image(s) reviewed by me Assessment/Plan Assessment/Plan Chest pain, rule out coronary artery disease Hypertensive urgency Hyperlipidemia Rule out structural heart disease Patient getting left heart catheterization by Dr. Cloud today Plan discussed with: Patient Date of Service: Apr 27, 2024 Billing Provider: KAYLEE SILVA MD Common Visit Codes: [id number] INP/OBS CARE(HIGH) KAYLEE SILVA MD Apr 27, 2024 13:28
[2024-04-27] MEDS: IODIXANOL 320MG/ML 100ML BTL IV ONE (14:07)
[2024-04-27] MEDS: HEPARIN SODIUM (PORCINE) 5000 UNITS/ML 1ML VIAL ONE (14:09)
[2024-04-27] MEDS: ANGIOMAX 250 MG VIAL IV ONE (14:09)
[2024-04-27] MEDS: MIDAZOLAM HCL 2MG/2ML 2ml VIAL (1mg/ml) ONE (14:09)
[2024-04-27] MEDS: SODIUM CHL 0.9% 0 ML ONE (14:09)
[2024-04-27] MEDS: fentaNYL CITRATE 100 MCG/2 ML VL ONE (14:09)
[2024-04-27] MEDS: VERAPAMIL 2.5MG/ML INJ 2ML VIAL IV ONE (14:09)
[2024-04-27] MEDS: LIDOCAINE 2%HCL (LOCAL ANESTH.) INJ 20ML MDV ONE (14:10)
--- NOTE | 2024-04-27 15:35 | DVHOP2 ---
Operative Report -Cardiology Report Details Date: 04/27/24 Preop Diagnosis: Angina pectoralis. Postop Diagnosis: Coronary angiography shows moderate disease of the LAD at 70% of the distal part of it. There is also ayma-zs-dbkcijrn disease involving the proximal left circumflex artery and the mid right coronary artery for medical therapy. Patient has elevated left ventricular end-diastolic [id number] mm of mercury indicating diastolic heart failure. Surgeon: Kenya De Dios MD Anesthesiologist: Conscious sedation using25 mcg of fentanyl as well as a mg of midazolam. It was given under the direct supervision of the primary project systems engineer myself in the presence of the attending nurses. Patient was monitored for total of35 minutes without obvious complication. Anesthesia: Local Consent: The patient was informed of the risks and benefits of the procedure. These include but are not limited to complications of anesthesia, postoperative infection, incomplete relief of symptoms, recurrence of symptoms, damage to blood vessels, nerves and tendons, deep venous thrombosis, pulmonary embolism and possible need for repeat surgery in the future. Indications for Surgery: This is a 79-year-old male patient who presents to emergency room with chief complaint of chest pain. The patient primarily speaks [place]. His brother who is at bedside is able to translate at time of assessment. The patient states he has been experiencing chest pain for approximately 12 hours. He describes it as provoked by deep inhalation, sharp in nature, left-sided with radiation to right side of chest, back, bilateral legs, and bilateral arms. Associated symptoms include shortness of breath. Initial twelve lead e lectrocardiogram reveals normal sinus rhythm without any significant ST segment changes. Initial serial troponin levels have been negative. Significant past medical history includes hypertension, hyperlipidemia, and myocardial infarction. The patient reports that he does not have a primary doctor and rarely is seen by any physicians. He reports going to the emergency room "a few years ago" at [facility] where he states he was diagnosed with a myocardial infarction, but states there were no interventions such as angiogram or stent placement. Name of Procedure Performed 1. Left heart catheterization with left ventricular end-diastolic pressure measurement. 2. Selective right and left coronary angiography utilizing right transradial approach. 3. Conscious sedation using25 mcg of fentanyl as well as a mg of midazolam. Procedure Details Procedure Details: Procedure note and vascular access: After informed consent was obtained, risks, benefits, complications, and alternatives were discussed in details with the patient who agrees to have the procedure done. At the beginning of the procedure, the right wrist and the right coronary artery were prepped and draped in the regular sterile fashion. Patient received conscious sedation with 25 mcg of fentanyl as well as a mg of midazolam. Thereafter, total of2 cc of 1% xylocaine was given to the right wrist area before a six Turkmen sheath was placed without difficulty using modified Seldinger technique. Crowley five Turkmen catheter as well as a J-tip wire we were able to cross the aortic valve and measured left ventricular end-diastolic pressure before left right and left heart cath were done. Findings were as follows: 1. Left heart catheterization with left ventricular end-diastolic pressure measurement: 1. With the help of tiger five Turkmen catheter and a J-tip wire we were able to cross the aortic valve and measured left ventricular end-diastolic pressure which was elevated at 15 mm of mercury. There was no gradient across the aortic valve on the pullback. 2. Selective right and left coronary angiography utilizing right transradial approach: 1. The left main comes off left coronary cusp it is large widely patent bifurcates distally into left anterior descending artery as well as medium-sized left circumflex vessel. 2. Left anterior descending artery is a large vessel with transapical course it gives rise to a medium-sized 1st diagonal branch followed by two small-sized diagonal branches. 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 Given the stability of the lesion medical therapy was thought to be the best option for this patient. 3. The left circumflex artery has czug-gb-jbxfrdnv disease of proximal of 30% mid at 40%. It gives rise to two obtuse marginal branches without significant stenosis. 4. The right coronary artery comes off the right coronary cusp, it is a large dominant system it bifurcates distally into large posterior descending as well as large posterolateral branch. It has mild irregularity of the proximal part at 30% without discrete stenosis. Impression and plan: 1. There is moderate disease involving the distal part of the LAD likely the patient's culprit of the presentation, giving the distal LAD of the lesion of the recommend medical therapy for this patient. 2.There is gllx-wm-byizfvmy disease involving the right and left circumflex system for which we will recommend medical therapy as well. 3. Quite elevated left ventricular end-diastolic pressure at 50 mm of mercury indicating diastolic heart failure would recommend aggressive medical therapy. 4. Patient would need an echocardiogram to assess left ventricular systolic function and proceed with the medical therapy as indicated. 5. Patient will need aggressive intervention for secondary risk factors including hypertension and hyperlipidemia. Condition Good [facility] Clinical Frailty Scale [facility] Clinical Frailty Scale: Mildly Frail Stress Test Stress Test Performed: No Dominance Dominance: Right Disposition KENYA DE DIOS MD Apr 27, 2024 15:35
[2024-04-27] MEDS: ACETAMINOPHEN 325 MG TAB PO PRN (18:04)
--- NOTE | 2024-04-27 22:08 | DVHSR ---
APPROVED REPORT EXAM: Two-dimensional and M-mode echocardiogram with Doppler and color Doppler. Blood Pressure: 191/92 mmHg INDICATION Chest Pain RISK FACTORS Height: 5'7", Weight: 153 DIMENSIONS LVDd4.1 (3.8-5.7cm)LA (2D)4.2 (1.9-4.0cm)Aortic Root3.4 (2.0-3.7cm) LVDs2.5 (2.5-4.0cm)LA (MM) (1.9-4.0cm)Aortic Cusp Exc1.2 (1.5-2.0cm) EF (%) 69.0 (55-70%)Rt. Atrium3.8 (1.9-4.0cm)Asc. Aorta3.6 cm IVSd1.1 (0.7-1.1cm)RV (D) (1.8-2.4cm) PWd1.2 (0.7-1.1cm) Mitral Valve MitralMitral Stenosis E wave0.61m/sMV Mean GR.mmHg A wave1.11m/sMV Peak GR.mmHg E/A ratio0.52D MVAcm2 DECEL [id number] 1/2 Timems Aortic Valve Aortic ValveAortic Stenosis V11.71m/Wiliam Mean GR.9mmHg V22.05m/Wiliam Peak GR.17mmHg LVOT Diameter2.0 (1.8-2.4cm)Doppler AVA2.62cm2 AI P 1/2 Ttwu248.57ms Pulmonic Valve V21.47m/s Other Information Quality : Technically LimitedRhythm : Technically limited study due to body habitus. Conclusion Normal left ventricular size and dimension. Normal left ventricular systolic function with estimated ejection fraction 55%. There is a grade 1 diastolic dysfunction. Normal right ventricular size and dimension. Normal right ventricular systolic function. Normal biatrial size and dimension. Normal aortic valve structure and function. Normal mitral valve structure and function. Normal tricuspid valve structure and function. The pulmonary valve is grossly normal. No pericardial effusion.
[2024-04-28] VITALS (8 sets, daily range): BP systolic 126–168; BP diastolic 56–93; PULSE 70–96; RESP 17–19; TEMP 97.6–98.4; O2SAT 92–99
[2024-04-28 06:37] LABS: Alanine Aminotransferase 10 U/L (7-40); Albumin 3.7 g/dL (3.2-4.8); Anion Gap 7 (5-15); Aspartate Aminotransferase 15 U/L (13-40); BUN/Creatinine Ratio 12.4 (10.0-20.0); Blood Urea Nitrogen 14 mg/dL (9-23); Calcium 9.5 mg/dL (8.7-10.4); Carbon Dioxide 27 mmol/L (20-31); Chloride 106 mmol/L (98-107); Glucose 87 mg/dL (74-106); Potassium 4.1 mmol/L (3.5-5.1); Sodium 140 mmol/L (136-145)
[2024-04-28 06:38] LABS: Total Protein 6.3 g/dL (5.7-8.2)
[2024-04-28 06:46] LABS: Alkaline Phosphatase 39 U/L (46-116); Bilirubin, Total 1.3 mg/dL (0.2-1.0)
--- NOTE | 2024-04-28 11:24 | DVHPN2 ---
Reviewed: Care Plan, H&P, Labs, Medications, Previous Orders, Radiology Changes from previous H/P or p: No Changes Eyes: No Pain, No Vision change, No Conjunctivae inflammation, No Eyelid inflammation, No Other, No Redness ENT: No Ear pain, No Ear discharge, No Nose pain, No Nose discharge, No Nose congestion, No Mouth pain, No Mouth swelling, No Throat pain, No Throat swelling, No Other Cardiovascular: Chest Pain; No Palpitations, No Orthopnea, No Paroxysmal Noc. Dyspnea, No Edema, No Lt Headedness, No Other Respiratory: No Cough, No Dry, No Shortness of breath, No SOB with excertion, No Wheezing, No Hemoptysis, No Pleuritic Pain, No Sputum, No Other Gastrointestinal: No Nausea, No Vomiting; Abdominal Pain; No Diarrhea, No Constipation, No Melena, No Hematochezia, No Other Genitourinary: No Dysuria, No Frequency, No Incontinence, No Hematuria, No Retention, No Other Musculoskeletal: No other, No neck pain; shoulder pain; No arm pain; back pain; No hand pain, No leg pain, No foot pain Skin: No Rash, No Lesions, No Jaundice, No Bruising, No Other Objective Vitals Vital Signs Date Time Temp Pulse Resp B/P (MAP) Pulse Ox O2 Delivery O2 Flow Rate FiO2 04/28/24 09:00 98.0 86 17 158/93 (114) 97 98.0 04/27/24 20:00 Room Air* 0 21 Intake/Output Intake and Output 04/28/24 06:59 Intake Total 750 ml Balance 750 ml Intake Oral 300 ml IV Total 450 ml # Voids 6 Medications Current Medications Medications Dose Ordered Sig/Rosa Route Start Time Stop Time Status Last Admin Dose Admin Hydralazine HCl 10 mg Q6HP PRN IV 04/26/24 10:00 04/27/24 07:47 10 MG Sodium Chloride 1,000 ml @ 75 mls/hr [id number] IV 04/26/24 10:30 04/28/24 02:30 75 MLS/HR Aspirin 81 mg DAILY PO 04/27/24 10:00 04/27/24 08:44 81 MG Atorvastatin Calcium 40 mg HS PO 04/26/24 22:00 04/27/24 21:59 40 MG Lisinopril 5 mg DAILY PO 04/27/24 10:00 04/28/24 08:40 5 MG Acetaminophen 650 mg Q6HP PRN PO 04/26/24 10:30 04/27/24 18:04 650 MG Lorazepam 0.5 mg Q6HP PRN PO 04/26/24 10:30 Docusate Sodium 100 mg DAILY PO 04/27/24 10:00 04/28/24 08:40 100 MG Ondansetron HCl 4 mg Q4HP PRN IV 04/26/24 10:30 Nitroglycerin 0.4 mg Q5MINP PRN SL 04/26/24 10:30 Morphine Sulfate 2 mg Q30M PRN IV 04/26/24 10:30 04/27/24 08:46 2 MG Diagnostic Test (Pha) 1 strip IQ4HR 04/26/24 12:00 04/28/24 11:00 1 STRIP Insulin Human Regular IQ4HR SC 04/26/24 12:00 04/27/24 20:31 3 UNITS Dextrose 50 ml UD PRN IV 04/26/24 10:45 Laboratory Results Laboratory Tests 04/27/24 05:39 04/28/24 04:48 Chemistry Test 04/28/24 04:48 Albumin 3.7 g/dL (3.2-4.8) Calcium Level 9.5 mg/dL (8.7-10.4) Total Protein 6.3 g/dL (5.7-8.2) LFT Test 04/28/24 04:48 Alanine Aminotransferase (ALT) 10 U/L (7-40) Alkaline Phosphatase 39 U/L (46-116) L Aspartate Amino Transferase (AST) 15 U/L (13-40) Total Bilirubin 1.3 mg/dL (0.2-1.0) H Labs and/or images reviewed: Labs reviewed by me, Image(s) reviewed by me Assessment/Plan Assessment/Plan Chest pain secondary to coronary artery disease, troponin negative x3 Hypertensive urgency Hyperlipidemia Diabetes ruled out A1c 5.6 Rule out structural heart disease Status post left heart catheterization by on 04/27/2024, findings of distal LAD lesion and gjek-hm-ldandoyo disease of the circumflex advised aggressive risk factor management including control of hypotension and hypercholesterolemia Acute on chronic diastolic congestive heart failure Patient lives with his brother Jason [phone] who is at bedside and the casting machine operator helper for [place] language Patient has no PCP and does not go to doctors Denies smoking or alcohol or drug use Does not take any medications at home Plan discussed with: Patient Date of Service: Apr 28, 2024 Billing Provider: KAYLEE SILVA MD Common Visit Codes: [id number] INP/OBS CARE(HIGH) KAYLEE SILVA MD Apr 28, 2024 11:24
--- NOTE | 2024-04-28 12:41 | DVHPN2 ---
Consult Progress Note Subjective Other Systems: The patient denies any cardiac symptoms at time of assessment. Patient remains in normal sinus rhythm on continuous air sampling and monitoring Objective vital signs Vital Sign Date Time Temp Pulse Resp B/P (MAP) Pulse Ox O2 Delivery O2 Flow Rate FiO2 04/28/24 09:00 98.0 86 17 158/93 (114) 97 98.0 04/27/24 20:00 Room Air* 0 21 Total Intake and Output 04/27/24 04/27/24 04/28/24 15:00 23:00 07:00 Intake Total 450 ml 0 ml 300 ml Balance 450 ml 0 ml 300 ml medications Current Medications Medications Dose Ordered Sig/Rosa Route Start Time Stop Time Status Last Admin Dose Admin Hydralazine HCl 10 mg Q6HP PRN IV 04/26/24 10:00 04/27/24 07:47 10 MG Sodium Chloride 1,000 ml @ 75 mls/hr [id number] IV 04/26/24 10:30 04/28/24 02:30 75 MLS/HR Aspirin 81 mg DAILY PO 04/27/24 10:00 04/27/24 08:44 81 MG Atorvastatin Calcium 40 mg HS PO 04/26/24 22:00 04/27/24 21:59 40 MG Lisinopril 5 mg DAILY PO 04/27/24 10:00 04/28/24 08:40 5 MG Acetaminophen 650 mg Q6HP PRN PO 04/26/24 10:30 04/27/24 18:04 650 MG Lorazepam 0.5 mg Q6HP PRN PO 04/26/24 10:30 Docusate Sodium 100 mg DAILY PO 04/27/24 10:00 04/28/24 08:40 100 MG Ondansetron HCl 4 mg Q4HP PRN IV 04/26/24 10:30 Nitroglycerin 0.4 mg Q5MINP PRN SL 04/26/24 10:30 Morphine Sulfate 2 mg Q30M PRN IV 04/26/24 10:30 04/27/24 08:46 2 MG Diagnostic Test (Pha) 1 strip IQ4HR 04/26/24 12:00 04/28/24 11:00 1 STRIP Insulin Human Regular IQ4HR SC 04/26/24 12:00 04/27/24 20:31 3 UNITS Dextrose 50 ml UD PRN IV 04/26/24 10:45 Examination: GENERAL:Normal, LUNGS:Normal, CVS:Normal, NEURO:Normal laboratory and microbiology Laboratory Tests 04/28/24 04:48 04/27/24 05:39 Test 04/28/24 04:48 Range/Units Serum Glucose 87 74-106 mg/dL Problem List/Assessment/Plan Problem List/Assessment/Plan Chest pain, moderate disease of the LAD Hypertensive urgency, resolved Hyperlipidemia Plan/Recommendation (Dr. Brennan): Transthoracic echocardiogram reveals EF 55% . The patient underwent a coronary angiogram with left heart catheterization on 04/27/2024 which revealed moderate disease of the LAD as well as mild to moderate disease involving the proximal left circumflex artery and mid right coronary artery. We will recommend medical therapy at this time. Patient to have aggressive blood pressure control and lipid-lowering agent. There is no further inpatient cardiac workup indicated at this time. Patient to follow up with Cardiology in the outpatient setting in 1- 2 weeks post discharge. Thank you for allowing us to care for this patient. Please call with any questions or concerns. This medical document was created using an electronic medical record system with voice recognition software and computerized dictation system. Although this document has been carefully reviewed, there might still be some phonetic and typographical errors. Occasional wrong-word or ``sound-alike substitutions may have occurred due to the inherent limitations of voice recognition software. These areas are purely typographical due to imperfections of the software programs and do not reflect any compromise in the patient's medical care. Please read the chart carefully and recognize, using context, where these substitutions have occurred. Plan discussed with: Patient, Other (brother at bedside ) Date of Service: Apr 28, 2024 Billing Provider: JULIO BRENNAN MD Common Visit Codes: [id number] INP/OBS CARE(HIGH) RENAY THOMASON ALTERATIONS MANAGER Apr 28, 2024 12:41
[2024-04-29 01:00] VITALS: BP 153/85; PULSE 80; RESP 18; TEMP 98.4; O2SAT 96
[2024-04-29 05:00] VITALS: BP 153/88; PULSE 86; RESP 20; TEMP 97.8; O2SAT 98
[2024-04-29 08:00] VITALS: PULSE 79; PULSE 87
[2024-04-29] MEDS: LISINOPRIL 5 MG TAB PO SCH (08:58)
[2024-04-29 09:00] VITALS: BP 139/85; PULSE 86; RESP 17; TEMP 97.8; O2SAT 95
[2024-04-29] MEDS ORDERED: ATOR-507 PO (11:47)
[2024-04-29] MEDS ORDERED: METO-158 PO (11:47)
[2024-04-29] MEDS ORDERED: ASPI-628 PO (11:47)
--- NOTE | 2024-04-29 11:54 | DVHPN2 ---
Reviewed: Care Plan, H&P, Labs, Medications, Previous Orders, Radiology Changes from previous H/P or p: No Changes Eyes: No Pain, No Vision change, No Conjunctivae inflammation, No Eyelid inflammation, No Other, No Redness ENT: No Ear pain, No Ear discharge, No Nose pain, No Nose discharge, No Nose congestion, No Mouth pain, No Mouth swelling, No Throat pain, No Throat swelling, No Other Cardiovascular: Chest Pain; No Palpitations, No Orthopnea, No Paroxysmal Noc. Dyspnea, No Edema, No Lt Headedness, No Other Respiratory: No Cough, No Dry, No Shortness of breath, No SOB with excertion, No Wheezing, No Hemoptysis, No Pleuritic Pain, No Sputum, No Other Gastrointestinal: No Nausea, No Vomiting; Abdominal Pain; No Diarrhea, No Constipation, No Melena, No Hematochezia, No Other Genitourinary: No Dysuria, No Frequency, No Incontinence, No Hematuria, No Retention, No Other Musculoskeletal: No other, No neck pain; shoulder pain; No arm pain; back pain; No hand pain, No leg pain, No foot pain Skin: No Rash, No Lesions, No Jaundice, No Bruising, No Other Objective Vitals Vital Signs Date Time Temp Pulse Resp B/P (MAP) Pulse Ox O2 Delivery O2 Flow Rate FiO2 04/29/24 09:00 97.8 86 17 139/85 (103) 95 97.8 04/29/24 08:00 Room Air* 0 21 Intake/Output Intake and Output 04/29/24 07:00 Intake Total 3575 ml Output Total 800 ml Balance 2775 ml Intake Oral 1750 ml IV Total 1825 ml Output Urine Total 800 ml # Voids 3 Medications Current Medications Medications Dose Ordered Sig/Rosa Route Start Time Stop Time Status Last Admin Dose Admin Hydralazine HCl 10 mg Q6HP PRN IV 04/26/24 10:00 04/29/24 01:57 10 MG Sodium Chloride 1,000 ml @ 75 mls/hr [id number] IV 04/26/24 10:30 04/28/24 13:50 75 MLS/HR Aspirin 81 mg DAILY PO 04/27/24 10:00 04/27/24 08:44 81 MG Atorvastatin Calcium 40 mg HS PO 04/26/24 22:00 04/28/24 21:20 40 MG Acetaminophen 650 mg Q6HP PRN PO 04/26/24 10:30 04/27/24 18:04 650 MG Lorazepam 0.5 mg Q6HP PRN PO 04/26/24 10:30 Docusate Sodium 100 mg DAILY PO 04/27/24 10:00 04/29/24 08:57 100 MG Ondansetron HCl 4 mg Q4HP PRN IV 04/26/24 10:30 Nitroglycerin 0.4 mg Q5MINP PRN SL 04/26/24 10:30 Morphine Sulfate 2 mg Q30M PRN IV 04/26/24 10:30 04/28/24 22:02 2 MG Lisinopril 10 mg DAILY PO 04/29/24 10:00 04/29/24 08:58 10 MG Laboratory Results Laboratory Tests 04/27/24 05:39 04/28/24 04:48 Labs and/or images reviewed: Labs reviewed by me, Image(s) reviewed by me Assessment/Plan Assessment/Plan Chest pain secondary to coronary artery disease, troponin negative x3 Hypertensive urgency Hyperlipidemia Diabetes ruled out A1c 5.6 Rule out structural heart disease echocardiogram 55 percent ejection Status post left heart catheterization by on 04/27/2024, findings of distal LAD lesion and zzor-dw-fzswyqfc disease of the circumflex advised aggressive risk factor management including control of hypotension and hypercholesterolemia Acute on chronic diastolic congestive heart failure: Tino Patient lives with his brother Jason [phone] who is at bedside and the vp genetic for [place]ese language Patient has no PCP and does not go to doctors Denies smoking or alcohol or drug use Does not take any medications at home Plan discussed with: Patient My Orders Orders - KAYLEE SILVA MD Procedure Category Date Status Time Initiate Vte ALEX 04/29/24 In Process Prophylaxis 08:05 Date of Service: Apr 29, 2024 Billing Provider: KAYLEE SILVA MD Common Visit Codes: [id number] INP/OBS CARE(HIGH) KAYLEE SILVA MD Apr 29, 2024 11:54
--- NOTE | 2024-04-29 12:00 | DVHDS2 ---
Discharge Summary Date of Admission Apr 26, 2024 at 10:27 Date of Discharge: Apr 29, 2024 Admitting Diagnosis Chest pain Wounds: Left heart catheterization Labs/Diagnostic Data: Laboratory Results Test 04/28/24 10:57 04/28/24 04:48 04/27/24 05:39 04/26/24 10:26 POC Glucose 123 mg/dl (70-106) Sodium Level 140 mmol/L (136-145) Potassium Level 4.1 mmol/L (3.5-5.1) Chloride Level 106 mmol/L (98-107) Carbon Dioxide Level 27 mmol/L (20-31) Anion Gap 7 (5-15) Blood Urea Nitrogen 14 mg/dL (9-23) Creatinine 1.13 mg/dL (0.700-1.30) Glomerular Filtration Rate Calc 67 mL/min (>90) BUN/Creatinine Ratio 12.4 (10.0-20.0) Serum Glucose 87 mg/dL (74-106) Calcium Level 9.5 mg/dL (8.7-10.4) Total Bilirubin 1.3 mg/dL (0.2-1.0) Aspartate Amino Transferase (AST) 15 U/L (13-40) Alanine Aminotransferase (ALT) 10 U/L (7-40) Alkaline Phosphatase 39 U/L (46-116) Total Protein 6.3 g/dL (5.7-8.2) Albumin 3.7 g/dL (3.2-4.8) White Blood Count 10.2 10^3/uL (4.4-10.8) Red Blood Count 4.89 10^6/uL (4.5-5.90) Hemoglobin 13.2 g/dL (13.5-17.5) Hematocrit 40.1 % (41.0-53.0) Mean Corpuscular Volume 82.0 fL (80.0-100.0) Mean Corpuscular Hemoglobin 27.0 pg (28.0-32.0) Mean Corpuscular Hemoglobin Concent 32.9 g/dL (32.0-36.0) Red Cell Distribution Width 14.4 % (11.8-14.3) Platelet Count 228 10^3/uL (140-450) Mean Platelet Volume 7.7 fL (6.9-10.8) Neutrophils (%) (Auto) 72.7 % (37.0-80.0) Lymphocytes (%) (Auto) 18.1 % (10.0-50.0) Monocytes (%) (Auto) 7.3 % (0.0-12.0) Eosinophils (%) (Auto) 1.3 % (0.0-7.0) Basophils (%) (Auto) 0.6 % (0.0-2.0) Neutrophils # (Auto) 7.4 10 ^3/uL (1.6-8.6) Lymphocytes # (Auto) 1.8 10 ^3/uL (0.4-5.4) Monocytes # (Auto) 0.7 10 ^3/uL (0-1.3) Eosinophils # (Auto) 0.1 10 ^3/uL (0-0.8) Basophils # (Auto) 0.1 10 ^3/uL (0-0.2) Nucleated Red Blood Cells 0.2 % Prothrombin Time 10.6 sec (9.3-11.8) Prothrombin Time INR 1.00 (0.9-1.15) Activated Partial Thromboplast Time 26.8 SEC (24.5-34.5) Magnesium Level 2.3 mg/dL (1.6-2.6) Troponin I High Sensitivity < 3 ng/L (</=54) Test 04/26/24 08:35 04/26/24 07:36 Triglycerides Level 101 mg/dL (< 150) Cholesterol Level 177 mg/dL (< 200) LDL Cholesterol 104 mg/dL (< 100) HDL Cholesterol 53 mg/dL (40-59) Thyroid Stimulating Hormone (TSH) 0.75 uIU/mL (0.55-4.78) Hemoglobin A1c 5.7 % A1C (<5.7) Other Laboratory Tests 04/28/24 04:48 04/27/24 05:39 Brief Hx & Hospital Course: 79-year-old male [place] by his brother to the ER for chest pain troponin negative x3 underwent left heart catheterization by Dr.Al ibarra with the findings of distal LAD lesion and [id number] disease of the circumflex. No stents placed advised aggressive risk factor management including control of the hypertension hypercholesterolemia. Patient does not have diabetes A1c is 5.6. His brother at bedside with the interpreter and translator. The patient is asymptomatic at the time of discharge and cleared for discharge by Cardiology. Prescription in 10 to pharmacy and he will follow up with discharge clinic in one week as he has no primary Dr Consults/Reason for consult Cardiology Dr.Al Ibarra Operations or Procedures Left heart catheterization Condition at Discharge: Fair Final Diagnosis/Problems List Chest pain secondary to coronary artery disease, troponin negative x3 Hypertensive urgency Hyperlipidemia Diabetes ruled out A1c 5.6 Rule out structural heart disease echocardiogram 55 percent ejection Status post left heart catheterization by on 04/27/2024, findings of distal LAD lesion and [id number]-[id number] disease of the circumflex advised aggressive risk factor management including control of hypotension and hypercholesterolemia Acute on chronic diastolic congestive heart failure: Lasix Discharge Disposition: Home Discharge Instruct/Medications Diet: Cardiac 2g Na,low cholest Activity: Light activity Follow Up/Referral: Follow up with the discharge clinic in one week Use medications as prescribed Medications: Lisinopril Aspirin Lipitor Transmitted to pharmacy 35 (Time taken for discharge summary 35 minutes) Discharge Statement: "Patient was advised to return to the ER or call 911 if any headaches, dizziness, shortness of breath, chest pain, abdominal pain, bleeding, fevers, or worsening of medical condition. Patient was counseled about treatment plan, medications, possible side effects, patientverbalized understanding. All questions were answered to the best of my ability. This discharge took greater then 30 minutes in planning, reviewing documentation, counseling the patient, and discussing with other team members." ASSESSMENT ASSESSMENT Hospital Course Improved Assessment Chest pain secondary to coronary artery disease, troponin negative x3 Hypertensive urgency Hyperlipidemia Diabetes ruled out A1c 5.6 Rule out structural heart disease echocardiogram 55 percent ejection Status post left heart catheterization by on 04/27/2024, findings of distal LAD lesion and wywi-yb-vaktdjiv disease of the circumflex advised aggressive risk factor management including control of hypotension and hypercholesterolemia Acute on chronic diastolic congestive heart failure: Lasix Date of Service: Apr 29, 2024 Billing Provider: KAYLEE SILVA MD Common Visit Codes: 30326-YCX/OBS DISCH DAY >30min KAYLEE SILVA MD Apr 29, 2024 12:00
[2024-04-29] MEDS ORDERED: LISI20TA56 PO (12:24)
[2024-04-29 13:00] VITALS: BP 152/86; PULSE 99; RESP 17; O2SAT 93
== END 2024-04-29 14:00 | disposition home or self-care (01) | DRG 191 ==
LOC: ER 07:21 → TELE 10:27 → TELE-WESTW 19:00
PROVIDERS: ATTEND Family Medicine
PROC: 4A023N7 Measurement of Cardiac Sampling and Pressure, Left Heart, Percutaneous Approach (ICD-10-PCS; principal; 2024-04-27)
PROC: B211YZZ Fluoroscopy of Multiple Coronary Arteries using Other Contrast (ICD-10-PCS; 2024-04-27)
DX: I25.10 Atherosclerotic heart disease of native coronary artery without angina pectoris (principal); I50.33 Acute on chronic diastolic (congestive) heart failure; I11.0 Hypertensive heart disease with heart failure; I16.0 Hypertensive urgency; I25.2 Old myocardial infarction; E78.00 Pure hypercholesterolemia, unspecified; Z79.899 Other long term (current) drug therapy
CPT/HCPCS: 36415; 71046; 80048; 80053; 80061; 82962; 83036; 83735; 84443; 84484; 85025; 85610; 85730; 93005; 93306; 93458; 99152; 99291; G0378; J1815; J2250; Q9967